=== PATIENT | female | born 1980 | race Caucasian/White ===

== ENCOUNTER 2016-10-23 23:31 | Emergency (ER) | payer OTHER ==
[~2016-10-23] VITALS: Ht 170.2 cm; Wt 50.8 kg
[~2016-10-23 23:31] MED LIST: ACETAMINOPHEN PO; KLONOPIN PO; NICOTINE T1 PATCH .2 TOP; NO MEDICATIONS
[2016-10-23] MEDS ORDERED: KLONOPIN0.5 MG (23:51)
[2016-10-26 16:51] LABS: CHLAMYDIA TRACH Not Detected (Not Detected); N GONOR Not Detected (Not Detected)
== END 2016-10-24 01:18 | disposition home or self-care (01) ==
LOC: SED 23:31
PROVIDERS: Physician Assistant
DX: H10.33 Unspecified acute conjunctivitis, bilateral (principal); F41.9 Anxiety disorder, unspecified; F17.200 Nicotine dependence, unspecified, uncomplicated
CPT/HCPCS: 87210; 87491; 87591; 87808; 87905; 99283